=== PATIENT | male | born 1960 | race Native Hawaiian/Other Pacific Islander ===

== ENCOUNTER 2017-11-11 06:40 | Day surgery (SDC) | payer OTHER ==
[2017-11-10 13:53] VITALS: BMI 24.3
--- NOTE | 2017-11-11 07:15 | CP.SDSHP ---
Same Day Surgery H & P - History Proposed Procedure: left distal radius closed reduction, possible pinning, cast application Pre-Op Diagnosis: Left distal radius fracture - Previous Medical/Surgical History Endocrine/Metabolic: Diabetes Previous Surgical History: hemorroidectomy - Allergies Allergies: Allergies aspirin Allergy (Verified 11/10/17 13:53) RASH - Physical Exam Mental Status: Alert & Oriented x3 Heart: WNL - {Optional Preform as Required} Ortho: Other (sensation intact, +ROM fingers/thumb, good cap refill) - Impression Impression: 57M complains of left wrist pain after fall found to have distal radius fracture for closed reduction, possible pinning, cast application Pt. Evaluated Today:Candidate for Anesthesia & Procedure: Yes (medical eval appreciated, low risk) - Date & Time Date: 11/11/17 Time: 07:22 Short Stay Discharge - Short Stay Discharge Admitting Diagnosis/Reason for Visit: [id number] Disposition: HOME/ ROUTINE Referrals: Bonilla Shoemaker III, MD [Primary Care Provider] - Past Patient History - Past Medical History & Family History Past Medical History?: Yes - Past Social History Smoking Status: Never Smoked - CARDIAC Hx Cardiac Disorders: Yes Hx Hypercholesterolemia: Yes - PULMONARY Hx Respiratory Disorders: No - NEUROLOGICAL Hx Neurological Disorder: No - HEENT Hx HEENT Problems: No - RENAL Hx Chronic Kidney Disease: No - ENDOCRINE/METABOLIC Hx Endocrine Disorders: No - HEMATOLOGICAL/ONCOLOGICAL Hx Blood Disorders: No - INTEGUMENTARY Hx Dermatological Problems: No - MUSCULOSKELETAL/RHEUMATOLOGICAL Hx Musculoskeletal Disorders: No - GASTROINTESTINAL Hx Gastrointestinal Disorders: No - GENITOURINARY/GYNECOLOGICAL Hx Genitourinary Disorders: No - PSYCHIATRIC Hx Psychophysiologic Disorder: No - SURGICAL HISTORY Hx Surgeries: Yes Other/Comment: hemorroidectomy - ANESTHESIA Hx Anesthesia: Yes Hx Anesthesia Reactions: No
--- NOTE | 2017-11-11 07:43 | CP.PCM.HP ---
History of Present Illness - History of Present Illness History of Present Illness: 57 y/o male with PMH dyslipidemia,DM type II presented via [facility] with left distal radius fracture for possible reduction and pinning. Patient states that he tripped and fell on his left arm on Thursday. He was seen at [facility] and diagnosed with left distal radius fracture and cast was applied. Patient was seen by Dr Shoemaker in his office who send him for closed reduction and possible pinning . Patient denies any pain ,numbness or tingling to his left arm and hand. denies any chest pain , SOB, palpitations. PND, orthopnea , urinary symptoms or changes in bowel movements> last meal was last evening at 7 PM Lab work up reviewed. Allergies ; ASA ( rash ) PMH ; DM , dylsipidemia Medications; Actos, atorvastatin Surgery ; Hemorrhoidectomy Family history ; None Social history ; lives with roommate in [facility], disabled , denies any smoking , ETOH or drug abuse ROS ; 10 point review of system negative except above Code status ; Full Surrogate decision maker ; Brother Blas [phone] Present on Admission - Present on Admission Any Indicators Present on Admission: No Review of Systems - Review of Systems All systems: reviewed and no additional remarkable complaints except Past Patient History - Infectious Disease Hx of Infectious Diseases: None - Past Medical History & Family History Past Medical History?: Yes Past Family History: Reviewed and not pertinent - Past Social History Smoking Status: Never Smoked Chewing Tobacco Use: No Cigar Use: No Alcohol: None Drugs: Denies Home Situation {Lives}: Friends Domestic Violence: Negative - CARDIAC Hx Cardiac Disorders: Yes Hx Hypercholesterolemia: Yes - PULMONARY Hx Respiratory Disorders: No - NEUROLOGICAL Hx Neurological Disorder: No - HEENT Hx HEENT Problems: No - RENAL Hx Chronic Kidney Disease: No - ENDOCRINE/METABOLIC Hx Endocrine Disorders: No - HEMATOLOGICAL/ONCOLOGICAL Hx Blood Disorders: No - INTEGUMENTARY Hx Dermatological Problems: No - MUSCULOSKELETAL/RHEUMATOLOGICAL Hx Musculoskeletal Disorders: No - GASTROINTESTINAL Hx Gastrointestinal Disorders: No - GENITOURINARY/GYNECOLOGICAL Hx Genitourinary Disorders: No - PSYCHIATRIC Hx Psychophysiologic Disorder: No - SURGICAL HISTORY Hx Surgeries: Yes Other/Comment: hemorroidectomy - ANESTHESIA Hx Anesthesia: Yes Hx Anesthesia Reactions: No Meds Allergies/Adverse Reactions: Allergies Allergy/AdvReac Type Severity Reaction Status Date / Time aspirin Allergy RASH Verified 11/10/17 13:53 Physical Exam - Constitutional Appears: Non-toxic, No Acute Distress - Head Exam Head Exam: ATRAUMATIC, NORMAL INSPECTION, NORMOCEPHALIC - Eye Exam Eye Exam: EOMI, Normal appearance, PERRL Pupil Exam: NORMAL ACCOMODATION - ENT Exam ENT Exam: Mucous Membranes Moist, Normal Exam - Neck Exam Neck exam: Positive for: Full Rom, Normal Inspection - Respiratory Exam Respiratory Exam: Clear to Auscultation Bilateral, NORMAL BREATHING PATTERN. absent: Rales, Rhonchi, Wheezes - Cardiovascular Exam Cardiovascular Exam: REGULAR RHYTHM, RRR, +S1, +S2. absent: JVD - GI/Abdominal Exam GI & Abdominal Exam: Normal Bowel Sounds, Soft. absent: Distended, Guarding, Rebound, Tenderness - Rectal Exam Rectal Exam: Deferred - Extremities Exam Extremities exam: Positive for: normal capillary refill, normal inspection. Negative for: calf tenderness, pedal edema Additional comments: left arm splint in place , fingers warm to touch, capillary refill intact - Back Exam Back exam: NORMAL INSPECTION - Neurological Exam Neurological exam: Alert, CN II-XII Intact, Oriented x3 - Psychiatric Exam Psychiatric exam: Normal Affect, Normal Mood - Skin Skin Exam: Dry, Intact, Normal Color, Warm Results - Vital Signs Recent Vital Signs: Last Vital Signs Temp 99.3 F 11/11/17 07:34 Pulse 87 11/11/17 07:34 Resp 20 11/11/17 07:34 BP 145/72 11/11/17 07:34 Pulse Ox 94 L 11/11/17 07:34 Assessment & Plan - Assessment and Plan (Free Text) Assessment: 57 y/o male with PMH dyslipidemia,DM type II presented via [facility] with left distal radius fracture for possible reduction and pinning. Patient states that he tripped and fell on his left arm on Thursday. He was seen at [facility] and diagnosed with left distal radius fracture and cast was applied. Patient was seen by Dr Shoemaker in his office who send him for closed reduction and possible pinning . Patient denies any pain ,numbness or tingling to his left arm and hand. denies any chest pain , SOB, palpitations. PND, orthopnea , urinary symptoms or changes in bowel movements> last meal was last evening at 7 PM Lab work up reviewed. 1. Left distal radius fracture ortho consult with Dr. Shoemaker for closed reduction and possible pinning Keep NPO Labs reviewed. Patient is low risk for surgery . 2.DM type II Accuchecks Hold PO meds insulin coverage IVF 3. Dyslipidemia on statin. 4. DVT prophylaxis SCD
[2017-11-11] MEDS ORDERED: Sodium Chloride 0.9% 1,000 ML IV ONE (08:25)
[2017-11-11] MEDS ORDERED: Neostigmine 1:1000 (1 mg/ml) Inj ONE (12:15)
[2017-11-11] MEDS ORDERED: Thrombin Topical 5,000 Int Units Spray Kit ONE (12:17)
[2017-11-11] MEDS ORDERED: Bacitracin Ointment 30 GM TUBE ONE (12:17)
[2017-11-11] MEDS ORDERED: Absorbable Gelatin Sponge Size 100 ONE (12:17)
[2017-11-11] MEDS ORDERED: Succinylcholine 200 mg/10 ml Inj IV ONE (12:21)
[2017-11-11] MEDS ORDERED: Propofol 10 mg/ml Inj (20 ML) ONE (12:21)
[2017-11-11] MEDS ORDERED: Rocuronium 10 mg/ml (5 ml) ONE (12:23)
[2017-11-11] MEDS ORDERED: Lidocaine 2% MPF (5 ml) Inj ONE (12:24)
[2017-11-11] MEDS ORDERED: Sodium Chloride 0.9% 1,000 ML IV SCH ×2 (12:30→15:00)
[2017-11-11] MEDS ORDERED: Midazolam 2 MG/2 ML VIAL ONE (12:30)
--- NOTE | 2017-11-11 13:21 | RAD ---
PROCEDURE: CHEST RADIOGRAPH, 1 VIEW HISTORY: pre op clearance COMPARISON: None available. FINDINGS: LUNGS: Clear. 9 mm nodular density in the right lung base. PLEURA: No pneumothorax or pleural fluid seen. CARDIOVASCULAR: Normal. OSSEOUS STRUCTURES: No significant abnormalities. VISUALIZED UPPER ABDOMEN: Normal. OTHER FINDINGS: None. IMPRESSION: No active disease. 9 mm nodular density in the right lung base which CT scan can be obtained for further evaluation on a nonemergent basis.
--- NOTE | 2017-11-11 13:23 | PCM.ANESB4 ---
Infraclavicular Block - Femoral Nerve Block Date of Procedure: 11/11/17 Anesthesiologist: Devon Pre-Procedure Diagnosis: Left distal radius fracture Post-Procedure Diagnosis: same Procedure Performed: Brachial Plexus at the Infraclavicular area Left - Procedure Infraclavicular Block: The procedure was explained to the patient that it is for the post-operative pain management. Consent was obtained after a thorough discussion with the patient regarding the benefits and possible complications of local anesthetic block of the brachial plexus at the infraclavicular area. The patient was brought to the operating room and standard monitors were applied. Time-out was held with the circulating nurse to confirm the correct surgery and the appropriate block. After applying oxygen by nasal cannula and administering IV Sedation, patient's head was gently rotated away from the operative ___left____ _ shoulder and the area medial to the coracoid process and inferior to the clavicle was carefully palpated. The ultrasound transducer was then applied to the skin in the transverse plane and the brachial plexus was visualized surrounding the axillary artery and deep to the pectoralis major and minor muscles. After thorough identification, this area was prepped withChloraprep and 1 % Lidocaine was injected subcutaneously for topical anesthesia. At this point, a #21 gauge Stimuplex 4-inch needle was inserted cephalad to the ultrasound transducer and inferior to the clavicle in-plane towards the posterior aspect of the axillary artery. Needle advancement was performed carefully under ultrasound visualization. Nerve stimulator was used and twitch of the affected extremity including fingers, hand, wrist and elbow was obtained at current of __0.4___MA. After repeated negative aspiration, __2___cc of __0.5_ __% bupivicaine was injected and this was followed with __28 ____ cc of ___0.5____ % ____bupivicaine . Under ultrasound guidance the local anesthetics were observed surrounding the cords of the brachial plexus. The needle was removed intact and sterile dressing was applied. The patient had stable vital signs, was conscious and in no apparent distress. The patient tolerated the infraclavicular block of the brachial plexus well with stable vital signs was prepared for subsequent surgery.
[2017-11-11] MEDS ORDERED: Lactated Ringer's 1,000 ML IV SCH (13:30)
--- NOTE | 2017-11-11 14:41 | PCM.SURG1 ---
Surgeon's Initial Post Op Note - Surgeon's Notes Surgeon: Sahara Rn Staff: JILLIAN Flor Type of Anesthesia: General Endo Anesthesia Administered By: Dr Finn Chin Pre-Operative Diagnosis: Disatl Radius fx/Radial styloid fx Operative Findings: as above Post-Operative Diagnosis: as above Operation Performed: Closed reduction distal radius fracture. application short arm cast. positioning of fluoro/interpreation of video images Specimen/Specimens Removed: n/a Estimated Blood Loss: EBL {In ML}: 0 Blood Products Given: N/A Drains Used: No Drains Post-Op Condition: Good Date of Surgery/Procedure: 11/11/17 Time of Surgery/Procedure: 12:50 (time in room/anaesthesia indcution time 12:27)
[2017-11-11] MEDS ORDERED: Oxycodone/Acetaminophen 5/325 mg Tab PO PRN (14:57)
[2017-11-11] MEDS: ceFAZolin 1 GM in Sodium Chloride 0.9% 100 ML IVPB SCH (18:39)
[2017-11-11] MEDS: Insulin Lispro (humaLOG) 100 Units/ml Inj SC SCH (21:56)
[2017-11-12] MEDS: ceFAZolin 1 GM in Sodium Chloride 0.9% 100 ML IVPB SCH (01:12)
[2017-11-12] MEDS: Insulin Lispro (humaLOG) 100 Units/ml Inj SC SCH (07:11)
--- NOTE | 2017-11-12 07:35 | CP.PCM.PN ---
Subjective - Date & Time of Evaluation Date of Evaluation: 11/12/17 Time of Evaluation: 07:51 - Subjective Subjective: Patient states pain is well controlled. Denies numbness/tingling. Anxious to go home. Objective - Vital Signs/Intake and Output Vital Signs (last 24 hours): Temp Pulse Resp BP Pulse Ox 97.9 F 68 18 136/73 98 11/12/17 05:00 11/12/17 05:00 11/12/17 05:00 11/12/17 05:00 11/12/17 05:00 - Medications Medications: Current Medications Acetaminophen (Tylenol 325mg Tab) 650 mg PO Q4 PRN PRN Reason: Fever 101 degrees fahrenheit Insulin Human Lispro (Humalog) 0 units SC ACHS [id number] PRN Reason: Protocol Last Admin: 11/12/17 07:11 Dose: Not Given Metformin HCl (Glucophage) 1,000 mg PO BID [facility] Last Admin: 11/11/17 18:39 Dose: 1,000 mg Morphine Sulfate (Morphine) 2 mg IVP Q4 PRN PRN Reason: Pain, severe (8-10) Ondansetron HCl (Zofran Inj) 4 mg IVP ONCE PRN PRN Reason: Nausea/Vomiting Oxycodone/Acetaminophen (Percocet 5/325 Mg Tab) 2 tab PO Q4 PRN PRN Reason: Pain, severe (8-10) Stop: 11/14/17 14:58 Pioglitazone HCl (Actos) 15 mg PO DAILY [facility] Pravastatin Sodium (Pravachol) 20 mg PO DAILY [facility] Sitagliptin Phosphate (Januvia) 100 mg PO DAILY [facility] - Extremities Exam Additional comments: +ROM fingers, sensation intact to med/rad/ulnar nerve distrib, +cap refill, no swelling to fingers Assessment and Plan (1) Fracture of left distal radius Assessment & Plan: d/c home maintain cast dry and intact elevation f/u Dr. Shoemaker in office in 2 weeks call for appt d/w Dr. Shoemaker agrees wi above [place] NAV[employer] DESIGN[employer] patient report reviewed, no prior CDS. Patient counseled on the risks of addiction, physical or psychological dependence, and overdose associated with opioid drugs and the danger of taking opioid drugs with alcohol and other central nervous system depressants, and cautioned patient on storage and disposal Status: Acute
[2017-11-12 08:06] VITALS: BP 138/70; PULSE 71; RESP 20; TEMP 98.6; O2SAT 96
--- NOTE | 2017-11-12 08:19 | CP.PCM.DIS ---
Provider - Provider Attending physician: Bonilla Shoemaker III, MD Primary care physician: Bonilla Shoemaker III, MD Consults: Ortho: Dr Shoemaker Time Spent in preparation of Discharge (in minutes): 20 Diagnosis - Discharge Diagnosis (1) Fracture of left distal radius Status: Acute (2) DM type 2 (diabetes mellitus, type 2) Status: Chronic Hospital Course - Lab Results Lab Results: Most Recent Lab Values POC Glucose (mg/dL) 248 mg/dL (65-110) H 11/11/17 21:17 - Hospital Course Hospital Course: 57 y/o male with PMH dyslipidemia,DM type II presented via [facility] with left distal radius fracture and scheduled for Closed reduction. Patient states that he tripped and fell on his left arm on Thursday. He was seen at [facility] and diagnosed with left distal radius fracture and cast was applied. Patient was seen by Dr Shoemaker in his office who sent him to the hospital for Surgery. Patient denies any pain ,numbness or tingling to his left arm and hand. denies any chest pain , SOB, palpitations. PND, orthopnea , urinary symptoms or changes in bowel movements> last meal was last evening at 7 PM Lab work up reviewed. 1. Left distal radius fracture s/p Closed Reduction and Application of a Short Arm Cast Ortho consult with Dr. Shoemaker Pain mgt Pt was observed overnight post op will d/c pt home and ff up with Dr Shoemaker as outpt 2.DM type II Accuchecks insulin coverage IVF hydration 3. Dyslipidemia on statin. 4. DVT prophylaxis SCD Discharge Exam - Head Exam Head Exam: ATRAUMATIC, NORMAL INSPECTION, NORMOCEPHALIC - Eye Exam Eye Exam: EOMI, Normal appearance, PERRL Pupil Exam: NORMAL ACCOMODATION - ENT Exam ENT Exam: Mucous Membranes Moist, Normal External Ear Exam - Neck Exam Neck exam: Full Rom - Respiratory Exam Respiratory Exam: NORMAL BREATHING PATTERN. absent: Respiratory Distress - Cardiovascular Exam Cardiovascular Exam: REGULAR RHYTHM, +S1, +S2 - GI/Abdominal Exam GI & Abdominal Exam: Normal Bowel Sounds, Soft. absent: Tenderness - Extremities Exam Extremities exam: normal capillary refill, pedal pulses present Additional comments: Left arm with cast - Back Exam Back exam: FULL ROM. absent: CVA tenderness (L), CVA tenderness (R), paraspinal tenderness, vertebral tenderness - Neurological Exam Neurological exam: Alert, CN II-XII Intact, Normal Gait, Oriented x3, Reflexes Normal - Psychiatric Exam Psychiatric exam: Normal Affect, Normal Mood - Skin Skin Exam: Dry, Normal Color, Warm Discharge Plan - Discharge Medications Prescriptions: oxyCODONE/Acetaminophen [Percocet 5/325 mg Tab] 1 tab PO Q4 PRN #10 tab PRN Reason: Pain, Severe (8-10) - Follow Up Plan Condition: GOOD Disposition: HOME/ ROUTINE Instructions: Fracture (DC) Additional Instructions: Keep left arm elevated Keep cast dry ff up with PMD tala appt with Dr Shoemaker next wk Referrals: Bonilla Shoemaker III, MD [Primary Care Provider] -
--- NOTE | 2017-11-12 08:23 | RAD ---
PROCEDURE: Left Wrist Radiographs. HISTORY: s/p L wrist fracture closed reduction COMPARISON: None. FINDINGS: BONES: Major fracture fragments are anatomically aligned. On the lateral view, there is an osseous excrescence at the level of the proximal carpal row. Were this represents an avulsion fracture cannot be determined with certainty or clarity on the current limited study and there are no comparison studies. JOINTS: Normal. No dislocation. SOFT TISSUES: Normal. OTHER FINDINGS: None. IMPRESSION: Status post close reduction. Limitations of the current examination: Fiberglass cast obscures considerable detail particularly as pertains possible fracture marked on accompanying study
--- NOTE | 2017-11-12 08:43 | RAD ---
PROCEDURE: Intraoperative Fluoroscopy. HISTORY: LEFT WRIST FINDINGS: Fluoroscopic assistance was provided for close reduction. Please refer to the operative report from CARLOS A Lyons. Total fluoroscopic time (continuous mode) utilized during the procedure (seconds) 2.8..
[2017-11-12] MEDS ORDERED: Pravastatin Sodium 20 MG TAB PO SCH (09:00)
--- NOTE | 2017-11-13 11:11 | CARD ---
APPROVED REPORT EKG Measurement Heart [id number] <Conclusion> Sinus rhythm with marked sinus arrhythmia Otherwise normal ECG
--- NOTE | 2017-11-13 12:24 | OP ---
PROCEDURE DATE: 11/11/2017 PREOPERATIVE DIAGNOSIS: Distal radius/distal radial styloid fracture. POSTOPERATIVE DIAGNOSIS: Distal radius/distal radial styloid fracture. OPERATIVE FINDINGS: Left distal radius fracture/radial styloid fracture. The patient has had a history of a previous distal radius fracture years ago. SURGEON: Bonilla Shoemaker MD MODEL MAKER SCALE: Taylor Velásquez, certified registered nursing assistant banquet manager. ANESTHESIA: General endotracheal anesthesia. ANESTHESIOLOGIST: Finn Osorio MD ESTIMATED BLOOD LOSS: Zero. BLOOD PRODUCTS: No blood products given. COMPLICATIONS: No complications. DRAINS: No drains. POSTOPERATIVE CONDITION: Stable. OPERATIVE INDICATION: Gary Sotelo is a 57-year-old gentleman who presents after a fall. The patient was treated at an emergency room and presents to the office. The patient had a previous distal radius fracture and a radial styloid fracture, which is new distal radius/radial styloid fracture. Question of potential instability was discussed. Pros, cons, risks and benefits of evaluation under anesthesia, possible pin fixation, cast application discussed. Possibility of stiffness, mechanical failure, infection, thromboembolic disease, secondary or tertiary surgery was discussed. The patient can no longer withstand the discomfort and wished the surgery to be accomplished. OPERATIVE PROCEDURE: After the satisfactory induction of general endotracheal anesthesia by Dr. Osorio, after having identified the side, site and procedure and critical pause/time-out, left wrist was the correct wrist, being left upper extremity was placed in a finger trap traction. There was a counter weight placed across the brachium. Under the surgeon's direction, the fluoroscope was positioned, video images were generated and therapeutic decisions were made therefrom. The wrist was manipulated. There was found to be no evidence of instability or displacement of the fracture. Closed reduction was accomplished to evaluate the position of the fracture in relation to the patient's old fracture, manipulation was accomplished by forcible flexion. Verification of position was offered on AP and lateral image intensification views. Position was found to be acceptable. Well-padded short-arm cast was applied as the patient adamantly refused the long-arm cast. The possibility of percutaneous pin fixation had been discussed, but that seems excessive. There was no evidence of gross instability of the fragments, so the cast was applied. Neurocirculatory status intact. PROCEDURES: 1. Closed reduction distal radius fracture. 2. Application of short-arm cast. 3. Positioning of fluoroscope and interpretation of video images. Bonilla Shoemaker MD
== END 2017-11-12 09:33 | disposition home or self-care (01) ==
LOC: H.OPSURG 06:40 → H.MEDSURG1 15:58 → H.OPSURG 11-12 09:33
PROVIDERS: ATTEND Orthopaedic Surgery
DX: S52.512A Displaced fracture of left radial styloid process, initial encounter for closed fracture (principal); E11.9 Type 2 diabetes mellitus without complications; E78.00 Pure hypercholesterolemia, unspecified; E78.5 Hyperlipidemia, unspecified; Z79.84 Long term (current) use of oral hypoglycemic drugs; W01.0XXA Fall on same level from slipping, tripping and stumbling without subsequent striking against object, initial encounter; Z88.6 Allergy status to analgesic agent
CPT/HCPCS: 25605; 71045; 73110; 82948; 93005; J0330; J0690; J2250; J2704; J2710; J3010; J7030